=== PATIENT | female | born 1990 | race African-American/Black ===

== ENCOUNTER 2017-05-17 08:35 | Emergency (ER) | payer OTHER ==
[~2017-05-17 08:35] MED LIST: CEPH500C PO; ONDA4TAB10 SL
[2017-05-17 08:40] VITALS: TEMP 36.8
[2017-05-17] MEDS ORDERED: ONDANSETRON INJ 2 MG/ML 2 ML VIAL IV STA (09:13)
[2017-05-17] MEDS ORDERED: SODIUM CHLORIDE 0.9% 1000ML 1,000 ML IV STA (09:13)
[2017-05-17] MEDS ORDERED: PEDICHW80 PO (09:26)
[2017-05-17 09:50] LABS: HEMATOCRIT 34.7 % (37-47); MEAN CELL VOLUME 87.8 fL (80-100); MEAN CORPUSCULAR HEMOGLOBIN 30.1 pg (25-34); MEAN CORPUSCULAR HGB CONC 34.3 g/dl (32-36); MEAN PLATELET VOLUME 9.6 fL (7.4-10.4); PLATELET COUNT 255 K/uL (130-400); RED BLOOD COUNT 3.95 M/uL (4.2-5.4); WHITE BLOOD COUNT 7.74 K/uL (4.8-10.8)
[2017-05-17 10:03] LABS: ALT/SGPT 15 U/L (12-78); AST/SGOT 7 U/L (15-37); BLOOD UREA NITROGEN 6 mg/dl (7-18); BUN/CREATININE RATIO 9.5 (10-20); CALCIUM 8.7 mg/dl (8.5-10.1); CARBON DIOXIDE 29 mmol/L (21-32); CHLORIDE 101 mmol/L (98-107); CREATININE 0.61 mg/dl (0.60-1.20); GLUCOSE 89 mg/dl (70-99); POTASSIUM 3.2 mmol/L (3.5-5.1); SODIUM 134 mmol/L (136-145)
[2017-05-17 10:05] LABS: ALB/GLOB RATIO 0.7 (0.9-2); ALKALINE PHOSPHATASE 71 U/L (45-117)
--- NOTE | 2017-05-17 11:33 | EMERGENCY ROOM VISIT NOTE ---
History First contact with patient: 08:46 Chief Complaint: DEHYDRATION Stated Complaint: 9 WEEKS , DEHYDRATED & LIGHT HEADED Nursing Triage Summary: Pt with N/V related to being 9 weeks . History of Present Illness Patient is a roughly 9 weeks 26-year-old -Thai female who presents emergency department for ongoing nausea and vomiting associated with her first trimester . Patient was seen and evaluated here one week ago with the same symptoms. She was thoroughly evaluated. She reports that she has been trying to follow a liquid diet, but states "I have to eat." She has tried eating normal foods and states that she is still vomiting 2-3 times per day. She states the Zofran "tastes bad" and is not helping with her vomiting. She states her last episode of emesis was last evening. She was diagnosed with a UTI and was prescribed Keflex, however did not get the prescription filled. Her urine culture was negative. She was seen by the obstetric nurse at her CARPENTER ASSISTANT INSTALLER office, and was instructed on dietary measures and [id number] medications which she states that she "cannot afford." She relates that she has lost 10 pounds since finding out that she has been . She denies any hematemesis. Bowel movements have alternated between normal and constipation. There has been no diarrhea. No black or bloody stools. She denies any urinary symptoms. She denies any pelvic pain, cramping , bleeding or leakage of fluid. She rates her pain a 0/10. She denies any sick contacts at home or at work. She has her first physician appointment on Saturday, 05/20. Review of Systems Review of systems as per HPI. All other systems reviewed were negative. 10 systems reviewed. Past Medical/Surgical History Medical Problems: (1) First trimester (2) Hyperemesis arising during (3) UTI (urinary tract infection) (4) Vomiting Electronic medical records are reviewed and summarized as above/below. See Problem List. Family History Diabetes mellitus Hypertension Kidney disease Kidney stones Social History Smoking Status: Former Smoker Drug Use: none Housing Status: lives with family Occupation Status: employed Current/Historical Medications Scheduled Ondasetron Odt (Zofran Odt), 4 MG SL Q6H Pediatric Multiple Vitamin W/ (Childrens Multivitamin), 1 TAB PO DAILY Physical Exam Vital Signs Date Time Temp Pulse Resp B/P (MAP) Pulse Ox O2 Delivery O2 Flow Rate FiO2 05/17/17 12:14 68 17 98/59 100 05/17/17 11:02 61 17 92/45 100 Room Air 05/17/17 10:11 65 17 98/62 100 Room Air 05/17/17 08:40 36.8 78 20 137/76 100 Room Air Physical Exam CONSTITUTIONAL: Patient is a well-appearing 26-year-old -Thai female who is awake and alert and in no acute distress. Documented by nursing staff that she was eating Cheetos in triage and nuts in the exam room. EYES: Pupils equal, round, reactive to light and accommodation. EOMs intact without nystagmus. Sclera are anicteric. ENT: Tympanic membranes intact, with normal landmarks. External canals are clear. Oral and nasopharynx are clear. Mucous membranes are moist, no lesions , tongue and gums appear normal. NECK: No bruits auscultated. Supple without lymphadenopathy. No thyromegaly. No meningeal signs. Full active range of motion without discomfort. CARDIOVASCULAR: Regular rate and rhythm, with normal S1 and S2, no murmur or gallop or rub is heard. No carotid bruits auscultated. No JVD. Peripheral pulses easily palpable. RESPIRATORY: Breath sounds equal and clear to auscultation without wheezes, rales, or rhonchi heard. Full and equal chest expansion without accessory muscle use or retractions. ABDOMEN: Bowel sounds are present. Abdomen is soft, nontender and nondistended. INTEGUMENTARY: No lesions or rash, normal skin turgor. LYMPH: No lymphadenopathy. Medical Decision & Procedures Laboratory Results 05/17/17 09:25 05/17/17 09:25 Test 05/17/17 09:25 Red Blood Count 3.95 M/uL (4.2-5.4) Mean Corpuscular Volume 87.8 fL (80-100) Mean Corpuscular Hemoglobin 30.1 pg (25-34) Mean Corpuscular Hemoglobin Concent 34.3 g/dl (32-36) RDW Standard Deviation 42.9 fL (36.4-46.3) RDW Coefficient of Variation 13.2 % (11.5-14.5) Mean Platelet Volume 9.6 fL (7.4-10.4) Anion Gap 4.0 mmol/L (3-11) Estimated GFR () 143.0 Estimated GFR (Non- 123.4 BUN/Creatinine Ratio 9.5 (10-20) Calcium Level 8.7 mg/dl (8.5-10.1) Total Bilirubin 0.6 mg/dl (0.2-1) Aspartate Amino Transf (AST/SGOT) 7 U/L (15-37) Alanine Aminotransferase (ALT/SGPT) 15 U/L (12-78) Alkaline Phosphatase 71 U/L (45-117) Total Protein 7.4 gm/dl (6.4-8.2) Albumin 3.0 gm/dl (3.4-5.0) Globulin 4.4 gm/dl (2.5-4.0) Albumin/Globulin Ratio 0.7 (0.9-2) Lipase 73 U/L (73-393) Medications Administered Medications (Trade) Dose Ordered Sig/Graciela Route Start Time Stop Time Status Last Admin Dose Admin Sodium Chloride 1,000 ml @ 999 mls/hr Q1H1M STAT IV 05/17/17 09:13 05/17/17 10:13 DC 05/17/17 09:33 999 MLS/HR Ondansetron HCl (Zofran Inj) 4 mg NOW STAT IV 05/17/17 09:13 05/17/17 09:15 DC 05/17/17 09:35 4 MG ED Course The patient was seen and assessed as above. Her records from last week were reviewed. IV lock was initiated. CBC, CMP and lipase were drawn. She was hydrated with normal saline solution and medicated with Zofran 4 mg IV. She was given a popsicle, ice chips, oral fluids and apple sauce throughout her emergency department stay with no further vomiting. Laboratory studies again noted a normal white count at 7700, H&H 11.9 and 34.7, electrolytes without significant abnormality. Potassium is slightly low today at 3.2. Renal function is normal. Liver functions, transaminases and pancreatic enzymes are normal. The patient was reassessed frequently. She tolerated oral fluids and a soft, liquid diet in the emergency department. She does not have any pelvic pain, cramping, bleeding or leakage of fluid to suspect threatened miscarriage. 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 She has been experiencing first trimester nausea and vomiting which she states is more severe than prior. Zofran has been ineffective. After discussion with the ED pharmacist, dosing instructions for doxylamine and pyridoxine were given to the patient to try. She was also encouraged to contact [facility] ASSISTANT INSTALLER for further care and instructions on her symptoms. Her weight has been stable over the last week. She is not clinically dehydrated on exam. Vital signs are stable. She was encouraged to continue to rest and push her fluids and follow-up with PROGRAM SUPPORT SPECIALIST as scheduled. The patient was discharged home in good condition. Medical Decision See Emergency Department course. Medication Reconcilliation Current Medication List: was personally reviewed by me Blood Pressure Screening Patient's blood pressure: Low blood pressure Blood pressure disposition: Did not require urgent referral Impression Primary Impression: Vomiting Additional Impression: First trimester Departure Information Referrals No Doctor, Assigned (PCP) Patient Instructions My [facility] Additional Instructions Doxylamine 25 mg tablets (Unisom sleep tablets) take one half tablet twice daily , may increase to one tablet daily if needed. This medication is sedating and will cause drowsiness. Avoid alcohol, operating machinery or dangerous equipment , working on ladders or roofs, DRIVING, or situations where being under the influence may be dangerous. Pyridoxine 25 mg (Vitamin B6): Take one tablet 3-4 times daily. Confirm with the pharmacist that you have the correct medications prior to purchase. Zofran(odansetron) tablets 4mg: Take one and allow it to dissolve in your mouth every four to six hours as needed for nausea or vomiting. Acetaminophen(Tylenol) may be used for fever or pain. Use 1000mg every six hours as needed. Avoid using more than 4000mg in a 24 hour period. Rest and drink plenty of fluids as tolerated. Slow sips of water or sports drinks are recommended instead of large amounts all at once. Continue current medications. Once your stomach is settled start with a clear liquid diet (jello, soup broth, etc.) and then advance as tolerated. You should avoid full, heavy meals for about 24 hrs from the time your symptoms resolved. Return to the ER for persistent vomiting, fevers, abdominal pain, chest pains, difficulty breathing, black or bloody stools, worsening of your condition, or as needed. Follow up with [facility] ASSISTANT INSTALLER as scheduled on Saturday. Problem Qualifiers
[2017-05-17 12:14] VITALS: BP 98/59; PULSE 68; O2SAT 100
== END 2017-05-17 12:15 | disposition home or self-care (01) ==
LOC: C.EDB 08:36
DX: O21.9 Vomiting of pregnancy, unspecified (principal); O23.41 Unspecified infection of urinary tract in pregnancy, first trimester; Z3A.09 9 weeks gestation of pregnancy

== ENCOUNTER 2017-05-28 02:42 | Emergency (ER) | payer OTHER ==
[~2017-05-28] VITALS: Ht 172.7 cm; Wt 127.0 kg
[~2017-05-28 02:42] MED LIST changes: -CEPH500C PO; +PEDICHW80 PO
[2017-05-28 02:47] VITALS: TEMP 36.7; Ht 172.7 cm; Wt 127.0 kg
[2017-05-28] MEDS ORDERED: PEDI-49 PO (03:09)
[2017-05-28 03:26] LABS: BASO % 0.1 %; BASO ABS # 0.01 K/uL (0-0.2); COMPLETE YES; EOS % 2.4 %; HEMATOCRIT 31.7 % (37-47); IG% 0.3 %; LYMPH % 33.3 %; LYMPH ABS # 2.32 K/uL (1.2-3.4); MEAN CELL VOLUME 87.8 fL (80-100); MEAN CORPUSCULAR HEMOGLOBIN 29.6 pg (25-34); MEAN CORPUSCULAR HGB CONC 33.8 g/dl (32-36); MEAN PLATELET VOLUME 9.8 fL (7.4-10.4); MONO % 8.2 %; NEUT % 55.7 %; PLATELET COUNT 219 K/uL (130-400); RED BLOOD COUNT 3.61 M/uL (4.2-5.4); WHITE BLOOD COUNT 6.96 K/uL (4.8-10.8)
[2017-05-28 03:38] LABS: INR 0.9 (0.9-1.1); PARTIAL THROMBOPLASTIN RATIO 1.1; PROTHROMBIN TIME (PATIENT) 9.6 SECONDS (9.0-12.0)
[2017-05-28 03:43] LABS: BUN/CREATININE RATIO 8.3 (10-20); CALCIUM 8.5 mg/dl (8.5-10.1); CREATININE 0.64 mg/dl (0.60-1.20)
[2017-05-28 03:46] LABS: ALB/GLOB RATIO 0.7 (0.9-2)
[2017-05-28] MEDS ORDERED: POTASSIUM CHLORIDE 20 MEQ TABCR PO STA (04:18)
[2017-05-28] MEDS ORDERED: POTASSIUM CHLORIDE 10 MEQ TABCR ONE (04:30)
[2017-05-28 04:39] LABS: URINE APPEARANCE CLOUDY (CLEAR); URINE BILIRUBIN NEG (NEG); URINE COLOR DK YELLOW; URINE EPITHELIAL CELL AUTO >30 /lpf (0-5); URINE NITRITE NEG (NEG); URINE PH 5.5 (4.5-7.5); URINE SPECIFIC GRAVITY 1.024 (1.000-1.030); UROBILINOGEN NEG (NEG); ZZUR CULT IF INDIC CLEAN CATCH YES
[2017-05-28 04:43] LABS: MANUAL MICROSCOPIC REQUIRED? NO; REVIEW REQ? NO
[2017-05-28 05:58] VITALS: BP 117/63; PULSE 69; O2SAT 100
--- NOTE | 2017-05-28 06:14 | EMERGENCY ROOM VISIT NOTE ---
History First contact with patient: 02:55 Chief Complaint: ED VAG BLEEDING Stated Complaint: 11 WKS AND BLEEDING History of Present Illness The patient is a 26 year old female who presents to the Emergency Room with complaints of vaginal bleeding that began less than one hour ago. The patient states that she went to bed is normal tonight, woke up, and went to bathroom. She reports having a large amount of bright red blood in the toilet after using the bathroom. The patient states that she is 11 weeks . This is her fifth with 3 previous live births. The patient does not have fever or chills. No chest pain, chest tightness, or shortness of breath. She has very minimal abdominal cramping that she rates a 1/10. Review of Systems More than 10 systems were reviewed and otherwise negative with the exception of history of present illness. Past Medical/Surgical History Medical Problems: (1) First trimester (2) Hyperemesis arising during (3) UTI (urinary tract infection) (4) Vomiting Family History Diabetes mellitus Hypertension Kidney disease Kidney stones Social History Smoking Status: Never Smoker Drug Use: none Housing Status: lives with family Occupation Status: employed Current/Historical Medications Scheduled Pediatric Multiple Vitamin W/ (Childrens Gummies), 1 TAB PO DAILY Physical Exam Vital Signs Date Time Temp Pulse Resp B/P (MAP) Pulse Ox O2 Delivery O2 Flow Rate FiO2 05/28/17 04:13 75 18 113/56 98 Room Air 05/28/17 02:47 36.7 86 20 119/74 99 Room Air Physical Exam VITALS: Vitals are noted on the nurse's note and reviewed by myself. Vital signs stable. GENERAL: Well-developed, well-nourished, obese black female, who is in no acute distress and resting comfortably. Patient is cooperative with the examination. HEART: Regular rate and rhythm without murmurs gallops or rubs. LUNGS: Clear to auscultation bilaterally without wheezes, rales or rhonchi. No retractions or accessory muscle use. ABDOMEN: Positive normal bowel sounds x 4. Soft, nontender, without masses or organomegaly. No guarding or rebound tenderness. MUSCULOSKELETAL: No muscle atrophy, erythema, or edema noted. Full range of motion without joint tenderness in all extremities. Medical Decision & Procedures ER Provider Diagnostic Interpretation: Preliminary Findings Only See Final Report For Complete Findings US OB LIMITED: Single live intrauterine at 11 weeks and 4 days by crown-rump length heart tones 158 bpm Perisac hemorrhage measuring 4.9 x 0.9 x 2.1 cm The ovaries are not identified No free fluid seen Cervix not adequately seen due to collapsed bladder Laboratory Results 05/28/17 03:13 Red Blood Count 3.61, Mean Corpuscular Volume 87.8, Mean Corpuscular Hemoglobin 29.6, Mean Corpuscular Hemoglobin Concent 33.8, Mean Platelet Volume 9.8, Neutrophils (%) (Auto) 55.7, Lymphocytes (%) (Auto) 33.3, Monocytes (%) (Auto) 8.2, Eosinophils (%) (Auto) 2.4, Basophils (%) (Auto) 0.1, Neutrophils # (Auto) 3.87, Lymphocytes # (Auto) 2.32, Monocytes # (Auto) 0.57, Eosinophils # (Auto) 0.17, Basophils # (Auto) 0.01 05/28/17 03:13 Test 05/28/17 03:13 05/28/17 04:10 White Blood Count 6.96 K/uL (4.8-10.8) Red Blood Count 3.61 M/uL (4.2-5.4) Hemoglobin 10.7 g/dL (12.0-16.0) Hematocrit 31.7 % (37-47) Mean Corpuscular Volume 87.8 fL (80-100) Mean Corpuscular Hemoglobin 29.6 pg (25-34) Mean Corpuscular Hemoglobin Concent 33.8 g/dl (32-36) Platelet Count 219 K/uL (130-400) Mean Platelet Volume 9.8 fL (7.4-10.4) Neutrophils (%) (Auto) 55.7 % Lymphocytes (%) (Auto) 33.3 % Monocytes (%) (Auto) 8.2 % Eosinophils (%) (Auto) 2.4 % Basophils (%) (Auto) 0.1 % Neutrophils # (Auto) 3.87 K/uL (1.4-6.5) Lymphocytes # (Auto) 2.32 K/uL (1.2-3.4) Monocytes # (Auto) 0.57 K/uL (0.11-0.59) Eosinophils # (Auto) 0.17 K/uL (0-0.5) Basophils # (Auto) 0.01 K/uL (0-0.2) RDW Standard Deviation 44.3 fL (36.4-46.3) RDW Coefficient of Variation 13.6 % (11.5-14.5) Immature Granulocyte % (Auto) 0.3 % Immature Granulocyte # (Auto) 0.02 K/uL (0.00-0.02) Prothrombin Time 9.6 SECONDS (9.0-12.0) Prothromb Time International Ratio 0.9 (0.9-1.1) Activated Partial Thromboplast Time 28.6 SECONDS (21.0-31.0) Partial Thromboplastin Ratio 1.1 Anion Gap 7.0 mmol/L (3-11) Est Creatinine Clear Calc Drug Dose 184.1 ml/min Estimated GFR () 140.7 Estimated GFR (Non- 121.4 BUN/Creatinine Ratio 8.3 (10-20) Calcium Level 8.5 mg/dl (8.5-10.1) Total Bilirubin 0.3 mg/dl (0.2-1) Aspartate Amino Transf (AST/SGOT) 8 U/L (15-37) Alanine Aminotransferase (ALT/SGPT) 15 U/L (12-78) Alkaline Phosphatase 64 U/L (45-117) Total Protein 6.7 gm/dl (6.4-8.2) Albumin 2.7 gm/dl (3.4-5.0) Globulin 4.0 gm/dl (2.5-4.0) Albumin/Globulin Ratio 0.7 (0.9-2) Lipase 85 U/L (73-393) Human Chorionic Gonadotropin, Quant 01436 mIU/mL Urine Color DK YELLOW Urine Appearance CLOUDY (CLEAR) Urine pH 5.5 (4.5-7.5) Urine Specific [place] 1.024 (1.000-1.030) Urine Protein TRACE (NEG) Urine Glucose (UA) NEG (NEG) Urine Ketones TRACE (NEG) Urine Occult Blood 3+ (NEG) Urine Nitrite NEG (NEG) Urine Bilirubin NEG (NEG) Urine Urobilinogen NEG (NEG) Urine Leukocyte Esterase TRACE (NEG) Urine WBC (Auto) 5-10 /hpf (0-5) Urine RBC (Auto) 10-30 /hpf (0-4) Urine Hyaline Casts (Auto) 1-5 /lpf (0-5) Urine Epithelial Cells (Auto) >30 /lpf (0-5) Urine Bacteria (Auto) 2+ (NEG) Medications Administered Medications (Trade) Dose Ordered Sig/Graciela Route Start Time Stop Time Status Last Admin Dose Admin Potassium Chloride (Klor-Con M10) 40 meq STK-MED ONCE .ROUTE 05/28/17 04:30 05/28/17 04:31 DC 05/28/17 04:42 40 MEQ ED Course Physical exam and history were performed. Nursing notes, EMR, and Medication List were personally reviewed. Patient appears to have vaginal bleeding in the first trimester of . The patient does not appear to be actively hemorrhaging. Pelvic exam was discussed, but was deferred. IV access was established and labs were obtained. The patient was sent to ultrasound. The patient's blood work is as above and was reviewed. She does not have a significantly elevated white blood cell count. She is highly anemic at 10.7 which is felt to be secondary to the . She also has a low potassium of 3.0 which was repleted orally. She does not have a significant electrolyte imbalance. Her hCG quantitative is greater than 40,000. She is blood type O+ and rhogam is not necessary. Ultrasound is as above and does show a live intrauterine gestation with heart rate 158. There also appears to be a subchorionic hemorrhage measuring roughly 5 x 2 x 1 cm. I discussed the case with the on-call COATER SLATE, Dr. Harrison, and we agree the patient appears well for discharge home. She is not actively hemorrhaging and appears to have a subchorionic hemorrhage causing her bleed. The patient will need to be on pelvic rest and with close follow-up by her normal COATER SLATE, Dr. Brandt. I did recommend the patient contact their office first thing this morning to make an appointment. The patient was asked to monitor for worsening symptoms such as worsening bleed or pain. She was certainly invited back to the ER with any new, worsening, or concerning symptoms. The patient is a plan of care and was discharged home under the care of a male cutter brake lining today. The chart was completed utilizing [employer] Voice Recognition Software. Grammatical errors, random word insertions, pronoun errors, and incomplete sentences are an occasional consequence of this system due to software limitations, ambient noise, and hardware issues. Any formal questions or concerns about the content, text, or information contained within the body of this dictation should be directly addressed to the provider for clarification. . Medical Decision Differential diagnosis: Etiologies such as ectopic , dysfunction uterine bleeding, bleeding dyscrasia, trauma, infection, as well as others were entertained. Impression Primary Impression: First trimester Departure Information Dispostion Home / Self-Care Condition GOOD Referrals Jen Diaz M.D. (PCP) Forms HOME CARE DOCUMENTATION FORM, IMPORTANT VISIT INFORMATION Patient Instructions My [facility] Additional Instructions You were seen and evaluated today on an emergency basis only. This is not a substitute for, or an effort to provide, complete comprehensive medical care. It is not possible to recognize and treat all injuries or illnesses in a single emergency department visit. For this reason it is recommended that you followup with your COATER SLATE by telephone today to make a follow-up appointment within the next week. Do not place anything into the vaginal vault for at least the next 3 weeks or as otherwise directed by COATER SLATE. You are welcome to return to the emergency department anytime with new, worsening, or concerning symptoms.
--- NOTE | 2017-05-28 07:04 | DIAGNOSTIC IMAGING REPORT ---
LIMITED (US) CLINICAL HISTORY: Vag bleed. 11 week COMPARISON STUDY: 05/10/2017 FINDINGS: A single live intrauterine gestation was visualized. The heart rate was 158. The crown-rump length measured 4.8 cm corresponding to an estimated postmenstrual age of 11 weeks and 4 days. This represents appropriate interval growth when compared the preceding study. There is a 4.9 x 0.9 x 2.1 cm subchorionic hematoma. IMPRESSION: 1. Single live intrauterine gestation. The estimated postmenstrual age is 11 weeks and 4 days 2. 4.9 x 0.9 x 2.1 cm subchorionic hematoma Electronically signed by: Mukul Hernandez M.D. 05/28/2017 7:03 AM Dictated Date/Time: 05/28/2017 7:01 AM
== END 2017-05-28 06:04 | disposition home or self-care (01) ==
LOC: C.EDB 02:43 → C.EDA 06:04
DX: O46.91 Antepartum hemorrhage, unspecified, first trimester (principal); Z87.440 Personal history of urinary (tract) infections; Z83.3 Family history of diabetes mellitus; Z82.49 Family history of ischemic heart disease and other diseases of the circulatory system; Z84.1 Family history of disorders of kidney and ureter

== ENCOUNTER → 2017-06-13 | Outpatient (CLI) | payer OTHER ==
[~2017-06-13] MED LIST changes: -ONDA4TAB10 SL; +PEDI-49 PO; -PEDICHW80 PO
== END | disposition home or self-care (01) ==
LOC: C.LABSPEC 14:09
PROVIDERS: ATTEND Obstetrics & Gynecology
DX: Z34.82 Encounter for supervision of other normal pregnancy, second trimester (principal)

== ENCOUNTER 2017-08-27 15:03 | Emergency (ER) | payer OTHER ==
[~2017-08-27] VITALS: Ht 170.2 cm; Wt 129.2 kg
[2017-08-27 15:12] VITALS: TEMP 36.8; Ht 170.2 cm; Wt 129.2 kg
[2017-08-27] MEDS ORDERED: ACETAMINOPHEN 500 MG TAB PO STA (15:31)
--- NOTE | 2017-08-27 15:36 | EMERGENCY ROOM VISIT NOTE ---
History Report prepared by Lauryn: Efrain Chong Under the Supervision of: Dr. Sukumar Gonzales M.D. First contact with patient: 15:18 Chief Complaint: CHEST PAIN Stated Complaint: CHEST PAIN, HURTS TO BREATH Nursing Triage Summary: Patient ambulatory to triage with an upright and steady gait, states "I am 6 months . This is my fourth and it has been the worst. For the first 5 months I was incredibly sick. I decided to try to go back to work yesterday. I was doing some heavy lifting and stood for about 6 hours straight. This morning, around 0630, I developed a stabbing pain in the right side of my chest that goes into my back. It hurts to take a deep breath but I don't feel short of breath." Patient denies any lightheadedness or dizziness. Patient is nauseated but has not thrown up. History of Present Illness The patient is a 27 year old black female with a past medical history of anxiety and depression who presents to the ED with a cc of constant right sided chest pain beginning last night. She rates her discomfort as a 10/10 in severity. She describes the pain as a stabbing sensation. The patient states that her pain is worsened with inhaling. She states that her pain radiates into her back. The patient states that she is currently 6 months and reports this is her fourth . She reports that she has had a couple of ultrasounds and states that her is going well. 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 She reports that starting last night, she developed chest pain that continued and woke her up at 0630 this morning. Positive back pain. Negative cough, SOB, surgeries, leg swelling, a history of blood clots in her legs or lungs, trauma. Source of History: patient Onset: last night Position: chest (right) Symptom Intensity: 10/10 Quality: stabbing Timing: constant Modifying Factors (Worsening): other (inhaling) Associated Symptoms: + back pain, No cough, No SOB Note: Negative surgeries, leg swelling, a history of blood clots in her legs or lungs , trauma. Review of Systems See HPI for pertinent positives and negatives. A total of ten systems were reviewed and were otherwise negative. Past Medical & Surgical Medical Problems: (1) First trimester (2) Hyperemesis arising during (3) UTI (urinary tract infection) (4) Vomiting Family History Diabetes mellitus Hypertension Kidney disease Kidney stones Social History Smoking Status: Former Smoker Drug Use: none Housing Status: lives with family Occupation Status: employed Current/Historical Medications Scheduled Multivit/Min/Iron/Fol Ac/Pren ( Vitamin), 1 TAB PO DAILY Allergies Coded Allergies: No Known Allergies (Unverified , 08/27/17) Physical Exam Vital Signs Date Time Temp Pulse Resp B/P (MAP) Pulse Ox O2 Delivery O2 Flow Rate FiO2 08/27/17 17:03 89 22 117/67 99 Room Air 08/27/17 16:31 87 08/27/17 15:41 100 Room Air 08/27/17 15:12 100 Room Air 08/27/17 15:12 36.8 87 22 120/67 100 Room Air Physical Exam GENERAL: Obese, awake, alert, well-appearing, NAD HENT: Normocephalic, atraumatic. EYES: Normal conjunctiva. Sclera non-icteric. NECK: Supple. No nuchal rigidity. FROM. RESPIRATORY: CTAB, no rhonchi, wheezing, crackles CARDIAC: RRR, no MRG ABDOMEN: Soft, NTND, BS+, Fundal height is above the umbilicus. MSK: No chest wall TTP, no LE edema. Reproducible right upper back pain at the scapula. No overlying skin changes. Mild reproducible discomfort with movement of right shoulder. No anterior chest wall pain. No calf pain. Negative Deloris's sign. NEURO: GCS 15, CN 2-12 intact, moves all 4s on command SKIN: No rash or jaundice noted. Medical Decision & Procedures ER Provider Diagnostic Interpretation: X-ray: Per my interpretation, radiologist review. CHEST ONE VIEW PORTABLE CLINICAL HISTORY: Atypical chest pain COMPARISON STUDY: No previous studies for comparison. FINDINGS: The heart is borderline enlarged. There is no failure. There is no focal pulmonary consolidation. There are no pleural effusions.[ IMPRESSION: No active disease in the chest. Electronically signed by: Mukul Hernandez M.D. 08/27/2017 3:52 PM Dictated Date/Time: 08/27/2017 3:52 PM Laboratory Results 08/27/17 15:42 Red Blood Count 3.65, Mean Corpuscular Volume 87.4, Mean Corpuscular Hemoglobin 29.6, Mean Corpuscular Hemoglobin Concent 33.9, Mean Platelet Volume 9.7, Neutrophils (%) (Auto) 72.2, Lymphocytes (%) (Auto) 19.5, Monocytes (%) (Auto) 6.6, Eosinophils (%) (Auto) 1.2, Basophils (%) (Auto) 0.1, Neutrophils # (Auto) 8.18, Lymphocytes # (Auto) 2.21, Monocytes # (Auto) 0.75, Eosinophils # (Auto) 0.14, Basophils # (Auto) 0.01 08/27/17 15:42 Test 08/27/17 15:42 White Blood Count 11.33 K/uL (4.8-10.8) Red Blood Count 3.65 M/uL (4.2-5.4) Hemoglobin 10.8 g/dL (12.0-16.0) Hematocrit 31.9 % (37-47) Mean Corpuscular Volume 87.4 fL (80-100) Mean Corpuscular Hemoglobin 29.6 pg (25-34) Mean Corpuscular Hemoglobin Concent 33.9 g/dl (32-36) Platelet Count 245 K/uL (130-400) Mean Platelet Volume 9.7 fL (7.4-10.4) Neutrophils (%) (Auto) 72.2 % Lymphocytes (%) (Auto) 19.5 % Monocytes (%) (Auto) 6.6 % Eosinophils (%) (Auto) 1.2 % Basophils (%) (Auto) 0.1 % Neutrophils # (Auto) 8.18 K/uL (1.4-6.5) Lymphocytes # (Auto) 2.21 K/uL (1.2-3.4) Monocytes # (Auto) 0.75 K/uL (0.11-0.59) Eosinophils # (Auto) 0.14 K/uL (0-0.5) Basophils # (Auto) 0.01 K/uL (0-0.2) RDW Standard Deviation 43.5 fL (36.4-46.3) RDW Coefficient of Variation 13.6 % (11.5-14.5) Immature Granulocyte % (Auto) 0.4 % Immature Granulocyte # (Auto) 0.04 K/uL (0.00-0.02) Prothrombin Time 9.4 SECONDS (9.0-12.0) Prothromb Time International Ratio 0.9 (0.9-1.1) Activated Partial Thromboplast Time 28.8 SECONDS (21.0-31.0) Partial Thromboplastin Ratio 1.1 Anion Gap 9.0 mmol/L (3-11) Est Creatinine Clear Calc Drug Dose 242.0 ml/min Estimated GFR () > 150.0 Estimated GFR (Non- 132.6 BUN/Creatinine Ratio 11.5 (10-20) Calcium Level 8.7 mg/dl (8.5-10.1) Total Bilirubin 0.5 mg/dl (0.2-1) Direct Bilirubin 0.1 mg/dl (0-0.2) Aspartate Amino Transf (AST/SGOT) 20 U/L (15-37) Alanine Aminotransferase (ALT/SGPT) 25 U/L (12-78) Alkaline Phosphatase 87 U/L (45-117) Troponin I < 0.015 ng/ml (0-0.045) Total Protein 6.8 gm/dl (6.4-8.2) Albumin 2.6 gm/dl (3.4-5.0) Lipase 91 U/L (73-393) Laboratory results reviewed by me Medications Administered Medications (Trade) Dose Ordered Sig/Graciela Route Start Time Stop Time Status Last Admin Dose Admin Acetaminophen (Tylenol Tab) 1,000 mg NOW STAT PO 08/27/17 15:31 08/27/17 15:33 DC 08/27/17 15:38 1,000 MG Ondansetron HCl (Zofran Inj) 4 mg NOW STAT IV 08/27/17 16:24 08/27/17 16:25 DC 08/27/17 16:30 4 MG Tramadol HCl (Ultram Tab) 50 mg NOW STAT PO 08/27/17 16:49 08/27/17 16:50 DC 08/27/17 17:02 50 MG ECG Per My Interpretation Indication: chest pain Rate (beats per minute): 87 Rhythm: normal sinus Findings: T-wave inversion (Single in Lead III), other (Normal intervals, Normal axis, No other STS changes or TWI) ED Course 1525: The patient was evaluated in room A04B. A complete history and physical exam was performed. Medical Decision Prior records/ancillary studies reviewed. Triage Nursing notes reviewed. The patient is a 27 year old black female with a past medical history of anxiety and depression who presents to the ED with a cc of constant right sided chest pain beginning last night. Differential diagnosis: Etiologies such as cardiac ischemia, aortic dissection, pulmonary embolism, pneumonia, pneumothorax, musculoskeletal, infections, pericarditis, myocarditis , esophageal rupture, gastrointestinal, as well as others were entertained. Patient was seen and evaluated the bedside. Patient is 003 was presenting with some chest discomfort. Upon further evaluation the patient does state that the pain is more in her right upper back and will radiate to the front. Patient describes it as right-sided. On exam the patient's pain is reproducible. She has noticeable discomfort when pressing on the right scapula. This is the same kind of pain that she described earlier. Patient did have blood work as well as an EKG, troponin, chest x-ray completed. Patient's chest x-ray is clear. Patient does have some chronic anemia. Mild hypokalemia. Patient's EKG is nonischemic does not show acute signs of right heart strain. The patient is not tachypneic, tachycardic, or hypoxic. I believe this is less likely PE given the patient's history and physical exam as well as reassuring vital signs. Also is likely ACS given the patient's nonischemic EKG and negative troponin. Patient was told that she may continue to take Tylenol. Tramadol was not given as an outpatient as there is not great evidence for or against the use of the medication. This was conveyed to the patient. The patient's pain did not improve initially with Tylenol so she was given tramadol. Patient was told to follow-up with [facility]. No obstetric workup was completed today given the patient has not had any vaginal bleeding, abdominal pain and has had recent ultrasounds which have been normal which would likely demonstrate a single IUP. Patient was given strict follow-up, discharge, and return precautions. All questions were answered. Patient was deemed suitable for outpatient follow-up at this time. Patient agreed with the plan of care and was safely discharged home. Medication Reconcilliation Current Medication List: was personally reviewed by me Blood Pressure Screening Patient's blood pressure: Normal blood pressure Impression Primary Impression: Pain of right scapula Additional Impressions: Hypokalemia Anemia Scribe Attestation The scribe's documentation has been prepared under my direction and personally reviewed by me in its entirety. I confirm that the note above accurately reflects all work, treatment, procedures, and medical decision making performed by me. Departure Information Dispostion Home / Self-Care Referrals No Doctor, Assigned (PCP) Patient Instructions Anatomy Shoulder, Chest Pain - [facility], Hypokalemia Dc, My [facility] Additional Instructions Please return to the emergency department if you have worsening or recurrent symptoms not amenable to at-home treatment. Please call for a follow-up appointment with her primary care physician. Please take your medications as prescribed. If you have other concerns and/or complaints please feel free to also call your primary care physician's office or return the ED for further evaluation, management, and treatment. You may take tylenol 1000 mg every 6 hours as needed for pain. Consider moist heat as well as ice to the area. Consider gentle range of motion exercises to help with your shoulder discomfort. Please follow-up with your [facility] as indicated. Take your medications as prescribed. You have been examined and treated today on an emergency basis only. This is not a substitute for, or an effort to provide, complete comprehensive medical care. It is impossible to recognize and treat all injuries or illnesses in a single emergency department visit. It is therefore important that you follow up closely with [facility], your PCP, and/or your specialist(s). Call as soon as possible for an appointment. Thank you for your time and consideration. I look forward to speaking with you again soon. Please don't hesitate to call us if you have any questions. Problem Qualifiers Additional Impressions: Anemia Anemia type: unspecified type Qualified Codes: D64.9 - Anemia, unspecified
[2017-08-27 15:41] VITALS: O2SAT 100
[2017-08-27] MEDS ORDERED: PRENTAB26 PO (15:51)
--- NOTE | 2017-08-27 15:54 | DIAGNOSTIC IMAGING REPORT ---
CHEST ONE VIEW PORTABLE CLINICAL HISTORY: Atypical chest pain COMPARISON STUDY: No previous studies for comparison. FINDINGS: The heart is borderline enlarged. There is no failure. There is no focal pulmonary consolidation. There are no pleural effusions.[ IMPRESSION: No active disease in the chest. Electronically signed by: Mukul Hernandez M.D. 08/27/2017 3:52 PM Dictated Date/Time: 08/27/2017 3:52 PM
[2017-08-27 16:02] LABS: BASO % 0.1 %; BASO ABS # 0.01 K/uL (0-0.2); EOS % 1.2 %; EOS ABS # 0.14 K/uL (0-0.5); HEMATOCRIT 31.9 % (37-47); HEMOGLOBIN 10.8 g/dL (12.0-16.0); IG# 0.04 K/uL (0.00-0.02); LYMPH % 19.5 %; LYMPH ABS # 2.21 K/uL (1.2-3.4); MEAN CELL VOLUME 87.4 fL (80-100); MEAN CORPUSCULAR HEMOGLOBIN 29.6 pg (25-34); MEAN CORPUSCULAR HGB CONC 33.9 g/dl (32-36); MEAN PLATELET VOLUME 9.7 fL (7.4-10.4); MONO % 6.6 %; MONO ABS # 0.75 K/uL (0.11-0.59); NEUT % 72.2 %; NEUT ABS # 8.18 K/uL (1.4-6.5); PLATELET COUNT 245 K/uL (130-400); RED CELL DISTRIBUTION WIDTH CV 13.6 % (11.5-14.5); RED CELL DISTRIBUTION WIDTH SD 43.5 fL (36.4-46.3); WHITE BLOOD COUNT 11.33 K/uL (4.8-10.8)
[2017-08-27 16:11] LABS: INR 0.9 (0.9-1.1); PTT PATIENT 28.8 SECONDS (21.0-31.0)
[2017-08-27] MEDS ORDERED: NURSING VERBAL MED ORDER ONE ×2 (16:15→16:30)
[2017-08-27 16:21] LABS: ALBUMIN 2.6 gm/dl (3.4-5.0); ALT/SGPT 25 U/L (12-78); BLOOD UREA NITROGEN 6 mg/dl (7-18); CALCIUM 8.7 mg/dl (8.5-10.1); CARBON DIOXIDE 22 mmol/L (21-32); CREATININE 0.48 mg/dl (0.60-1.20); GLUCOSE 76 mg/dl (70-99); LIPASE 91 U/L (73-393); POTASSIUM 3.4 mmol/L (3.5-5.1); SODIUM 135 mmol/L (136-145)
[2017-08-27] MEDS ORDERED: ONDANSETRON INJ 2 MG/ML 2 ML VIAL IV STA (16:24)
[2017-08-27 16:26] LABS: ALKALINE PHOSPHATASE 87 U/L (45-117); AST/SGOT 20 U/L (15-37); TOTAL PROTEIN 6.8 gm/dl (6.4-8.2)
[2017-08-27] MEDS ORDERED: TRAMADOL HCL 50 MG TAB PO STA (16:49)
[2017-08-27 17:03] VITALS: BP 117/67; PULSE 89; O2SAT 99
== END 2017-08-27 17:41 | disposition home or self-care (01) ==
LOC: C.EDB 15:04 → C.EDA 17:41
DX: M25.511 Pain in right shoulder (principal); E87.6 Hypokalemia; D64.9 Anemia, unspecified; Z83.3 Family history of diabetes mellitus; Z82.49 Family history of ischemic heart disease and other diseases of the circulatory system; Z87.891 Personal history of nicotine dependence